=== PATIENT | female | born 1955 | race Caucasian/White ===

== ENCOUNTER 2024-11-23 14:59 | Inpatient (IN) | payer OTHER, MEDICARE ==
[2024-11-23] VITALS (12 sets, daily range): BP systolic 125–144; BP diastolic 63–95
[~2024-11-23] VITALS: Ht 157.5 cm; Wt 63.0 kg
[2024-11-23] MEDS ORDERED: METOPROLOL TART50 MG PO (15:12)
[2024-11-23] MEDS ORDERED: TRIAMTERENE-HC1 EAC2 PO (15:12)
[2024-11-23 15:27] LABS: BASOPHILS 0.1 % (0-2); HEMATOCRIT 43.2 % (35.0-50.0); HEMOGLOBIN 14.9 g/dL (12.0-18.0); LYMPHOCYTES 1.5 % (24-44); MCH 36.2 (27-36); MCHC 34.5 g/dl (30-36); MCV 104.9 fl (81-99); MONOCYTES 5.7 % (0-12); NEUTROPHILS 92.7 % (39-80); PLATELET COUNT 625 K/uL (140-440); RBC 4.12 M/ul (4.3-5.7); RDW 13.7 (10.5-15.0)
[2024-11-23] MEDS ORDERED: SODIUM CHLORIDE 0.9% 1,000 ML IV ONE (15:30)
[2024-11-23 15:41] LABS: ALBUMIN 2.5 g/dL (3.4-5.0); ALBUMIN/GLOBULIN RATIO 0.41 (1.1-2.4); ANION GAP 18.4 (7-21); BILIRUBIN, TOTAL 1.1 ng/dL (0.2-1.0); BUN/CREATININE RATIO 46.11 (6.0-28.6); CREATININE, SERUM 1.8 mg/dL (0.55-1.02); POTASSIUM 3.4 mmol/L (3.5-5.1); PROTEIN, TOTAL 8.6 g/dL (6.4-8.2)
[2024-11-23 15:50] LABS: CALCIUM 14.2 mg/dL (8.5-10.1)
[2024-11-23] MEDS ORDERED: LIDOCAINE 2% VISCOUS 6 ML SYR TOP ONE (16:00)
[2024-11-23 16:28] LABS: BILIRUBIN, URINE POSITIVE (negative); BLOOD/HGB, URINE TRACE-I (Negative); KETONE, URINE NEGATIVE (Negative); LEUK ESTERASE, URINE MODERATE (negative); NITRITE, URINE NEGATIVE (negative); PH, URINE 5.5 (5-7)
[2024-11-23 16:33] LABS: EPITHELIAL CELLS, URINE SQUAMOUS 3+ /lpf (0-1+)
[2024-11-23 16:34] LABS: CRYSTALS, URINE NONE SEEN (0-1+); WHITE BLOOD CELLS, URINE 41-50 /HPF (0-5)
[2024-11-23 16:35] LABS: BACTERIA, URINE 3+ /hpf (negative); CASTS, URINE NONE SEEN \\lpf; COLLECTION TYPE, URINE CLEAN CATCH; REFLEX CULTURE, URINE No (No)
[2024-11-23] MEDS ORDERED: CEFTRIAXONE/SODIUM CHLORIDE 2 GM/100 ML PIGGYBACK IV ONE (16:45)
[2024-11-23] MEDS ORDERED: LIDOCAINE HCL 4% 1 EACH PATCH TD SCH (17:30)
[2024-11-23] MEDS ORDERED: SODIUM CHLORIDE 0.9% 1,000 ML IV SCH (18:15)
[2024-11-23] MEDS ORDERED: ondansetron HCL 4 MG/2 ML VIAL IV PRN (18:15)
[2024-11-23] MEDS ORDERED: OXYCODONE HCL 5 MG TAB PO PRN (20:45)
[2024-11-23] MEDS ORDERED: LIDOCAINE PATCH REMOVAL 1 EA TD SCH (21:00)
[2024-11-23] MEDS ORDERED: HEParin SOD (PORCINE) 5,000 UNIT/ML SDV SUB-Q SCH (21:00)
[2024-11-23 21:28] LABS: ANION GAP 15.1 (7-21); BUN/CREATININE RATIO 62.01 (6.0-28.6); CALCIUM 11.7 mg/dL (8.5-10.1); CREATININE, SERUM 1.29 mg/dL (0.55-1.02); POTASSIUM 3.1 mmol/L (3.5-5.1)
[2024-11-23] MEDS ORDERED: POTASSIUM CHLORIDE 10 MEQ TABCR PO ONE (22:45)
[2024-11-24] VITALS (15 sets, daily range): BP systolic 104–143; BP diastolic 59–83
[2024-11-24] MEDS ORDERED: DEXTROSE 5% - NACL 0.45% 1,000 ML IV SCH (02:00)
[2024-11-24 02:31] LABS: ANION GAP 13.8 (7-21); BUN/CREATININE RATIO 60.62 (6.0-28.6); CALCIUM 11.3 mg/dL (8.5-10.1); CREATININE, SERUM 1.27 mg/dL (0.55-1.02); POTASSIUM 3.8 mmol/L (3.5-5.1)
[2024-11-24] MEDS ORDERED: DEXTROSE 50% 50 ML SYR IV ONE (03:00)
[2024-11-24] MEDS ORDERED: SODIUM CHLORIDE 0.9% 1,000 ML IV SCH ×2 (03:00→14:30)
[2024-11-24 06:23] LABS: BASOPHILS 0.1 % (0-2); EOSINOPHILS 0.1 % (0-6); HEMOGLOBIN 10.7 g/dL (12.0-18.0); LYMPHOCYTES 1.9 % (24-44); MCH 35.8 (27-36); MCHC 34.4 g/dl (30-36); MCV 104.2 fl (81-99); MONOCYTES 6.5 % (0-12); NEUTROPHILS 91.4 % (39-80); PLATELET COUNT 421 K/uL (140-440); RBC 2.97 M/ul (4.3-5.7); RDW 14.2 (10.5-15.0)
[2024-11-24 06:37] LABS: ALBUMIN 1.6 g/dL (3.4-5.0); ANION GAP 14.2 (7-21); BUN/CREATININE RATIO 58.77 (6.0-28.6); CREATININE, SERUM 1.14 mg/dL (0.55-1.02); PHOSPHORUS, INORGANIC 2.6 mg/dL (2.5-4.9); POTASSIUM 3.2 mmol/L (3.5-5.1)
[2024-11-24] MEDS ORDERED: POTASSIUM CHLORIDE 10 MEQ TABCR PO ONE (07:00)
[2024-11-24] MEDS ORDERED: DEXTROSE 5% 1,000 ML IV SCH (07:00)
[2024-11-24] MEDS ORDERED: MAGNESIUM SULFATE 2 GM/50 ML BAG IV SCH (07:00)
[2024-11-24] MEDS ORDERED: CALCITONIN SALMON 400 UNIT/2 ML SUB-Q SCH ×2 (09:00→10:00)
[2024-11-24] MEDS ORDERED: SENNOSIDES/DOCUSATE 1 EA TAB PO SCH (09:00)
[2024-11-24] MEDS ORDERED: ZOLEDRONIC AC/MANNITOL/0.9NACL 4 MG/100 ML BAG IV ONE (09:00)
[2024-11-24] MEDS ORDERED: POLYETHYLENE GLYCOL 3350 1 PACKET PO SCH (09:00)
[2024-11-24] MEDS ORDERED: CEFTRIAXONE/SODIUM CHLORIDE 1 GM/100 ML PIGGYBACK IV SCH (09:00)
[2024-11-24] MEDS ORDERED: PHARMACY RENAL DOSE ADJUSTMENT 1 DOSE MISC PO SCH (12:00)
[2024-11-24 13:50] LABS: ANION GAP 11.7 (7-21); BUN/CREATININE RATIO 53.57 (6.0-28.6); CALCIUM 11.1 mg/dL (8.5-10.1); CREATININE, SERUM 1.12 mg/dL (0.55-1.02); POTASSIUM 3.7 mmol/L (3.5-5.1)
[2024-11-24] MEDS ORDERED: THIAMINE HCL 100 MG TAB PO SCH (14:56)
[2024-11-24] MEDS ORDERED: FOLIC ACID 1 MG TAB PO SCH (15:00)
[2024-11-24] MEDS ORDERED: LORazepam 2 MG/ML VIAL IV/IM PRN (15:00)
--- NOTE | 2024-11-24 15:15 | EKG ---
[facility] [address] [facility] [place], [place] [address] Signed Normal sinus rhythm Right atrial enlargement Nonspecific T wave abnormality Abnormal ECG No previous ECGs available Confirmed by Sarah Carranaz MD ([id number]) on 11/24/2024 3:15:24 PM Electronically Signed By: SARAH CARRANZA MD 11/24/24 1515 PATIENT NAME: ISAIAH SUAREZ Electrocardiogram DATE OF : 51 PHYSICIAN: SARAH CARRANZA MD REPORT #: [id number] REPORT IS CONFIDENTIAL AND NOT TO BE RELEASED WITHOUT AUTHORIZATION
[2024-11-24 18:46] LABS: BUN/CREATININE RATIO 53.77 (6.0-28.6); CALCIUM 10.4 mg/dL (8.5-10.1); CREATININE, SERUM 1.06 mg/dL (0.55-1.02)
[2024-11-25] VITALS (16 sets, daily range): BP systolic 104–157; BP diastolic 58–99
[2024-11-25 05:16] LABS: HEMATOCRIT 32.2 % (35.0-50.0); HEMOGLOBIN 10.8 g/dL (12.0-18.0); MCH 35.6 (27-36); MCHC 33.6 g/dl (30-36); MCV 105.7 fl (81-99); PLATELET COUNT 346 K/uL (140-440); RBC 3.05 M/ul (4.3-5.7); RDW 14.3 (10.5-15.0)
[2024-11-25 05:27] LABS: ALBUMIN 1.5 g/dL (3.4-5.0); ANION GAP 11.7 (7-21); BANDS, MANUAL DIFF 1; BUN/CREATININE RATIO 56.38 (6.0-28.6); CALCIUM 9.9 mg/dL (8.5-10.1); CREATININE, SERUM 0.94 mg/dL (0.55-1.02); EOSINOPHILS, MANUAL DIFF 1; LYMPHOCYTES, MANUAL DIFF 3; MAGNESIUM 1.9 mg/dL (1.8-2.4); NEUTROPHILS, MANUAL DIFF 95; PHOSPHORUS, INORGANIC 2.3 mg/dL (2.5-4.9); POTASSIUM 3.7 mmol/L (3.5-5.1)
[2024-11-25] MEDS ORDERED: FUROSEMIDE 40 MG/4 ML VIAL IV ONE (08:00)
[2024-11-25] MEDS ORDERED: KETOROLAC TROMETHAMINE 15 MG/ML VIAL IV ONE (08:00)
[2024-11-25 08:49] LABS: PARATHYROID HORMONE,INTACT 11 pg/mL (15-65)
[2024-11-25] MEDS ORDERED: FOLIC ACID 1 MG/0.2 ML ML IV SCH (09:00)
[2024-11-25] MEDS ORDERED: METOPROLOL TARTRATE 5 MG/5 ML VIAL IV SCH (09:00)
[2024-11-25] MEDS ORDERED: POTASSIUM PHOSPHATE 30 MMOL in DEXTROSE 5% 500 ML IV ONE (09:00)
[2024-11-25] MEDS ORDERED: THIAMINE HCL 200 MG/2 ML VIAL IV SCH (09:00)
[2024-11-25] MEDS ORDERED: CALCITONIN SALMON 400 UNIT/2 ML SUB-Q SCH (09:30)
[2024-11-25 13:53] LABS: VITAMIN D 25 OH 10 ng/mL (30-80)
[2024-11-25] MEDS ORDERED: KETOROLAC TROMETHAMINE 15 MG/ML VIAL IV PRN (18:15)
[2024-11-25 18:49] LABS: ANION GAP 13.1 (7-21); BUN/CREATININE RATIO 47.11 (6.0-28.6); CALCIUM 9.1 mg/dL (8.5-10.1); CREATININE, SERUM 1.04 mg/dL (0.55-1.02); POTASSIUM 4.1 mmol/L (3.5-5.1)
[2024-11-25] MEDS ORDERED: SODIUM CHLORIDE 0.9% 1,000 ML IV SCH (20:00)
[2024-11-26] VITALS (16 sets, daily range): BP systolic 103–151; BP diastolic 59–92
[2024-11-26 05:22] LABS: HEMOGLOBIN 10.1 g/dL (12.0-18.0); RDW 14.3 (10.5-15.0)
[2024-11-26 05:24] LABS: HEMATOCRIT 30.4 % (35.0-50.0); MCH 34.9 (27-36); MCHC 33.1 g/dl (30-36); MCV 105.5 fl (81-99); PLATELET COUNT 322 K/uL (140-440); RBC 2.88 M/ul (4.3-5.7)
[2024-11-26 05:34] LABS: ALBUMIN 1.5 g/dL (3.4-5.0); BUN/CREATININE RATIO 51.4 (6.0-28.6); CALCIUM 8.6 mg/dL (8.5-10.1); CREATININE, SERUM 1.07 mg/dL (0.55-1.02); MAGNESIUM 1.6 mg/dL (1.8-2.4); PHOSPHORUS, INORGANIC 3.5 mg/dL (2.5-4.9)
[2024-11-26 05:40] LABS: BANDS, MANUAL DIFF 2; EOSINOPHILS, MANUAL DIFF 4; LYMPHOCYTES, MANUAL DIFF 3; MONOCYTES, MANUAL DIFF 3; NEUTROPHILS, MANUAL DIFF 88
[2024-11-26] MEDS ORDERED: MAGNESIUM SULFATE 2 GM/50 ML BAG IV SCH (07:30)
[2024-11-26] MEDS ORDERED: METOPROLOL TARTRATE 50 MG TAB PO SCH (09:00)
[2024-11-26] MEDS ORDERED: IBUPROFEN 400 MG TAB PO PRN (10:15)
[2024-11-27] VITALS (14 sets, daily range): BP systolic 105–153; BP diastolic 58–86
[2024-11-27 05:20] LABS: HEMOGLOBIN 9.7 g/dL (12.0-18.0); MCH 35.2 (27-36); MCHC 33.5 g/dl (30-36); MCV 105.2 fl (81-99); PLATELET COUNT 309 K/uL (140-440); RBC 2.75 M/ul (4.3-5.7); RDW 14.2 (10.5-15.0)
[2024-11-27 05:33] LABS: ALBUMIN 1.3 g/dL (3.4-5.0); ANION GAP 12.9 (7-21); BUN/CREATININE RATIO 48.21 (6.0-28.6); CALCIUM 7.5 mg/dL (8.5-10.1); CREATININE, SERUM 1.12 mg/dL (0.55-1.02); MAGNESIUM 2.3 mg/dL (1.8-2.4); PHOSPHORUS, INORGANIC 2.6 mg/dL (2.5-4.9); POTASSIUM 3.9 mmol/L (3.5-5.1)
[2024-11-27 05:37] LABS: BANDS, MANUAL DIFF 1; EOSINOPHILS, MANUAL DIFF 2; LYMPHOCYTES, MANUAL DIFF 8; MONOCYTES, MANUAL DIFF 4; NEUTROPHILS, MANUAL DIFF 85
[2024-11-27] MEDS ORDERED: bisacodyL 10 MG SUPP PR ONE (07:15)
[2024-11-27] MEDS ORDERED: MINERAL OIL 133 ML BTL PR ONE (07:15)
[2024-11-27] MEDS ORDERED: FOLIC ACID 1 MG TAB PO SCH (08:00)
[2024-11-27] MEDS ORDERED: THIAMINE HCL 100 MG TAB PO SCH (08:00)
[2024-11-27] MEDS ORDERED: CEFTRIAXONE/SODIUM CHLORIDE 2 GM/100 ML PIGGYBACK IV SCH (09:00)
[2024-11-27] MEDS ORDERED: POLYETHYLENE GLYCOL 3350 1 PACKET PO SCH (09:00)
[2024-11-27] MEDS ORDERED: SENNOSIDES/DOCUSATE 1 EA TAB PO SCH (09:00)
[2024-11-27] MEDS ORDERED: ALBUTEROL SULFATE 0.083% 3 ML VIAL INH PRN (11:00)
[2024-11-27] MEDS ORDERED: ALBUTEROL/IPRATROPIUM 3 ML NEB INH SCH (16:00)
[2024-11-27] MEDS ORDERED: FUROSEMIDE 40 MG/4 ML VIAL ONE (17:01)
[2024-11-27] MEDS ORDERED: FUROSEMIDE 40 MG/4 ML VIAL IV SCH (17:06)
[2024-11-27] MEDS ORDERED: metroNIDAZOLE/SODIUM CHLORIDE 500 MG/100 ML PIGGYBACK IV SCH (22:00)
[2024-11-27 22:47] LABS: INFLUENZA B NAA NEGATIVE (NEGATIVE); RESPIRATORY SYNCYTIAL VIR NAA NEGATIVE (NEGATIVE)
[2024-11-28] VITALS (21 sets, daily range): BP systolic 119–169; BP diastolic 69–96
[2024-11-28] MEDS ORDERED: METOPROLOL TARTRATE 5 MG/5 ML VIAL IV SCH (02:00)
[2024-11-28 05:20] LABS: HEMOGLOBIN 10.5 g/dL (12.0-18.0); MCHC 32.9 g/dl (30-36); MCV 106.2 fl (81-99); PLATELET COUNT 277 K/uL (140-440); RBC 3.01 M/ul (4.3-5.7); RDW 14.6 (10.5-15.0)
[2024-11-28 05:32] LABS: ALBUMIN 1.5 g/dL (3.4-5.0); ANION GAP 16.1 (7-21); BUN/CREATININE RATIO 41.6 (6.0-28.6); CALCIUM 7.1 mg/dL (8.5-10.1); CREATININE, SERUM 1.37 mg/dL (0.55-1.02); MAGNESIUM 2.1 mg/dL (1.8-2.4); PHOSPHORUS, INORGANIC 3.7 mg/dL (2.5-4.9); POTASSIUM 4.1 mmol/L (3.5-5.1)
[2024-11-28 05:38] LABS: BANDS, MANUAL DIFF 2; LYMPHOCYTES, MANUAL DIFF 6; MONOCYTES, MANUAL DIFF 9; NEUTROPHILS, MANUAL DIFF 83
[2024-11-28] MEDS ORDERED: FOLIC ACID 1 MG TAB PO SCH (14:15)
[2024-11-28] MEDS ORDERED: THIAMINE HCL 100 MG TAB PO SCH (14:15)
[2024-11-28] MEDS ORDERED: TRAMADOL HCL 50 MG TAB PO PRN (17:45)
[2024-11-28] MEDS ORDERED: ALBUTEROL/IPRATROPIUM 3 ML NEB INH SCH (20:00)
[2024-11-28] MEDS ORDERED: OXYCODONE HCL 5 MG TAB PO PRN (22:00)
[2024-11-29] VITALS (9 sets, daily range): BP systolic 126–153; BP diastolic 70–94
[2024-11-29 05:42] LABS: BASOPHILS 0.2 % (0-2); EOSINOPHILS 1.9 % (0-6); LYMPHOCYTES 4.3 % (24-44); MCH 35.1 (27-36); MCHC 33.4 g/dl (30-36); MCV 104.9 fl (81-99); MONOCYTES 5.4 % (0-12); NEUTROPHILS 88.2 % (39-80); PLATELET COUNT 244 K/uL (140-440); RBC 2.86 M/ul (4.3-5.7); RDW 14.9 (10.5-15.0)
[2024-11-29 06:06] LABS: ALBUMIN 1.4 g/dL (3.4-5.0); ALBUMIN/GLOBULIN RATIO 0.35 (1.1-2.4); ANION GAP 13.6 (7-21); BILIRUBIN, TOTAL 0.3 ng/dL (0.2-1.0); BUN/CREATININE RATIO 36.53 (6.0-28.6); CALCIUM 6.6 mg/dL (8.5-10.1); CREATININE, SERUM 1.56 mg/dL (0.55-1.02); POTASSIUM 3.6 mmol/L (3.5-5.1); PROTEIN, TOTAL 5.4 g/dL (6.4-8.2)
[2024-11-29 06:18] LABS: CHOLESTEROL/HDL RATIO 2.1
[2024-11-29] MEDS ORDERED: VANCOMYCIN PER PHARMACY PROTOCOL IV SCH (09:24)
[2024-11-29] MEDS ORDERED: METOPROLOL TARTRATE 50 MG TAB PO SCH (10:07)
[2024-11-29] MEDS ORDERED: SODIUM CHLORIDE 0.9% 1,000 ML IV SCH (10:15)
[2024-11-29] MEDS ORDERED: VANCOMYCIN HCL 1,500 MG in DEXTROSE 5% 250 ML IV ONE (11:00)
[2024-11-29 17:06] LABS: HEMATOCRIT 31.8 % (35.0-50.0); HEMOGLOBIN 10.7 g/dL (12.0-18.0); MCH 35.3 (27-36); MCHC 33.5 g/dl (30-36); MCV 105.3 fl (81-99); PLATELET COUNT 257 K/uL (140-440); RBC 3.02 M/ul (4.3-5.7)
[2024-11-29 17:15] LABS: ANION GAP 14.6 (7-21); BUN/CREATININE RATIO 34.3 (6.0-28.6); CALCIUM 6.5 mg/dL (8.5-10.1); CREATININE, SERUM 1.72 mg/dL (0.55-1.02); POTASSIUM 3.6 mmol/L (3.5-5.1)
[2024-11-29 17:23] LABS: EOSINOPHILS, MANUAL DIFF 1; LYMPHOCYTES, MANUAL DIFF 2; MONOCYTES, MANUAL DIFF 3; NEUTROPHILS, MANUAL DIFF 94
[2024-11-29] MEDS ORDERED: SODIUM CHLORIDE 0.9% 500 ML IV SCH ×2 (18:00→20:30)
[2024-11-30] VITALS (9 sets, daily range): BP systolic 114–145; BP diastolic 67–75
[2024-11-30 05:29] LABS: BASOPHILS 0.3 % (0-2); EOSINOPHILS 1.9 % (0-6); HEMATOCRIT 29.1 % (35.0-50.0); HEMOGLOBIN 9.7 g/dL (12.0-18.0); LYMPHOCYTES 4.1 % (24-44); MCHC 33.5 g/dl (30-36); MCV 104.4 fl (81-99); MONOCYTES 4.4 % (0-12); NEUTROPHILS 89.3 % (39-80); PLATELET COUNT 231 K/uL (140-440); RBC 2.78 M/ul (4.3-5.7); RDW 15.2 (10.5-15.0)
[2024-11-30 05:48] LABS: ALBUMIN 1.2 g/dL (3.4-5.0); ALBUMIN/GLOBULIN RATIO 0.32 (1.1-2.4); ANION GAP 14.8 (7-21); BILIRUBIN, TOTAL 0.2 ng/dL (0.2-1.0); BUN/CREATININE RATIO 33.74 (6.0-28.6); CREATININE, SERUM 1.63 mg/dL (0.55-1.02); MAGNESIUM 1.6 mg/dL (1.8-2.4); PHOSPHORUS, INORGANIC 3.6 mg/dL (2.5-4.9); POTASSIUM 3.8 mmol/L (3.5-5.1)
[2024-11-30 06:01] LABS: CALCIUM 6.1 mg/dL (8.5-10.1)
[2024-11-30] MEDS ORDERED: hydrOXYzine pamoate 25 MG CAP PO PRN (07:45)
[2024-11-30] MEDS ORDERED: CALCIUM CARBONATE 500 MG CHEW PO ONE (09:30)
[2024-11-30] MEDS ORDERED: VANCOMYCIN HCL 750 MG in DEXTROSE 5% 250 ML IV SCH (11:00)
[2024-11-30] MEDS ORDERED: ALBUTEROL/IPRATROPIUM 3 ML NEB INH SCH (12:00)
[2024-11-30] MEDS ORDERED: MORPHINE SULFATE 4 MG/ML VIAL IV PRN (16:30)
[2024-11-30] MEDS ORDERED: MAGNESIUM SULFATE 2 GM/50 ML BAG IV SCH (16:45)
[2024-12-01] VITALS (9 sets, daily range): BP systolic 99–137; BP diastolic 55–83
[2024-12-01 05:40] LABS: BASOPHILS 0.3 % (0-2); EOSINOPHILS 2.3 % (0-6); HEMOGLOBIN 10.4 g/dL (12.0-18.0); LYMPHOCYTES 3.2 % (24-44); MCH 34.6 (27-36); MCHC 32.6 g/dl (30-36); MCV 106.2 fl (81-99); MONOCYTES 5.7 % (0-12); NEUTROPHILS 88.5 % (39-80); PLATELET COUNT 212 K/uL (140-440); RBC 3.01 M/ul (4.3-5.7); RDW 15.4 (10.5-15.0)
[2024-12-01 06:00] LABS: ALBUMIN 1.3 g/dL (3.4-5.0); ALBUMIN/GLOBULIN RATIO 0.34 (1.1-2.4); BILIRUBIN, TOTAL 0.2 ng/dL (0.2-1.0); BUN/CREATININE RATIO 32.14 (6.0-28.6); CREATININE, SERUM 1.68 mg/dL (0.55-1.02); MAGNESIUM 2.7 mg/dL (1.8-2.4); PROTEIN, TOTAL 5.1 g/dL (6.4-8.2)
[2024-12-01 06:01] LABS: CALCIUM 6.4 mg/dL (8.5-10.1)
[2024-12-01] MEDS ORDERED: CALCIUM CARBONATE 500 MG CHEW PO ONE (07:45)
[2024-12-01] MEDS ORDERED: ALBUTEROL/IPRATROPIUM 3 ML NEB INH SCH (08:00)
[2024-12-01 18:27] LABS: WBC, BODY FLUID 1000
[2024-12-01 18:28] LABS: CRYSTALS, BODY FLUID NOT SEEN; MONONUCLEAR CELLS, BODY FLUID 4; PMNS, BODY FLUID 96; RBC, BODY FLUID 267333; SOURCE, BODY FLUID JOINT
[2024-12-02] VITALS (7 sets, daily range): BP systolic 120–140; BP diastolic 61–73
[2024-12-02 06:25] LABS: BASOPHILS 0.6 % (0-2); EOSINOPHILS 2.7 % (0-6); HEMATOCRIT 30.3 % (35.0-50.0); HEMOGLOBIN 9.9 g/dL (12.0-18.0); LYMPHOCYTES 2.8 % (24-44); MCH 34.2 (27-36); MCHC 32.8 g/dl (30-36); MCV 104.3 fl (81-99); MONOCYTES 4.7 % (0-12); NEUTROPHILS 89.2 % (39-80); PLATELET COUNT 185 K/uL (140-440); RDW 15.4 (10.5-15.0)
[2024-12-02 06:38] LABS: ALBUMIN 1.4 g/dL (3.4-5.0); ALBUMIN/GLOBULIN RATIO 0.36 (1.1-2.4); ANION GAP 14.8 (7-21); BILIRUBIN, TOTAL 0.3 ng/dL (0.2-1.0); BUN/CREATININE RATIO 33.92 (6.0-28.6); CALCIUM 6.9 mg/dL (8.5-10.1); CREATININE, SERUM 1.68 mg/dL (0.55-1.02); MAGNESIUM 2.4 mg/dL (1.8-2.4); PHOSPHORUS, INORGANIC 4.2 mg/dL (2.5-4.9); POTASSIUM 3.8 mmol/L (3.5-5.1); PROTEIN, TOTAL 5.3 g/dL (6.4-8.2)
[2024-12-02 10:50] LABS: VANCOMYCIN, TROUGH 21.2 ug/mL (5.0-20.0)
[2024-12-02] MEDS ORDERED: MIRTAZAPINE 15 MG TAB PO SCH (21:00)
[2024-12-02] MEDS ORDERED: clindamycin HCL 300 MG CAP PO SCH (21:00)
[2024-12-03 00:34] VITALS: BP 122/71
[2024-12-03 03:58] LABS: HEMOGLOBIN 10.2 g/dL (12.0-18.0)
[2024-12-03 04:00] LABS: MCH 34.7 (27-36); MCHC 32.9 g/dl (30-36); MCV 105.3 fl (81-99); PLATELET COUNT 116 K/uL (140-440); RBC 2.94 M/ul (4.3-5.7); RDW 15.6 (10.5-15.0)
[2024-12-03 04:12] LABS: BASOPHILS, MANUAL DIFF 1; EOSINOPHILS, MANUAL DIFF 1; LYMPHOCYTES, MANUAL DIFF 9; MONOCYTES, MANUAL DIFF 5; NEUTROPHILS, MANUAL DIFF 84
[2024-12-03 04:19] LABS: ALBUMIN 1.5 g/dL (3.4-5.0); ALBUMIN/GLOBULIN RATIO 0.38 (1.1-2.4); ANION GAP 12.3 (7-21); BILIRUBIN, TOTAL 0.2 ng/dL (0.2-1.0); BUN/CREATININE RATIO 31.07 (6.0-28.6); CALCIUM 7.4 mg/dL (8.5-10.1); CREATININE, SERUM 1.77 mg/dL (0.55-1.02); MAGNESIUM 2.5 mg/dL (1.8-2.4); PHOSPHORUS, INORGANIC 5.5 mg/dL (2.5-4.9); POTASSIUM 4.3 mmol/L (3.5-5.1); PROTEIN, TOTAL 5.5 g/dL (6.4-8.2)
[2024-12-03] MEDS ORDERED: FUROSEMIDE 40 MG/4 ML VIAL IV SCH (05:30)
[2024-12-03 05:36] VITALS: BP 94/62
[2024-12-03 06:30] VITALS: BP 105/55
[2024-12-03 07:48] LABS: INR 1.03 (0.80-1.30); PROTIME 13.4 Sec (11.2-14.2)
[2024-12-03 07:51] LABS: PARTIAL THROMBOPLASTIN TIME 32.6 Sec (22.9-41.3)
[2024-12-03] MEDS ORDERED: ALBUTEROL/IPRATROPIUM 3 ML NEB INH SCH (08:00)
[2024-12-03] MEDS ORDERED: DIATRIZOATE MEGLU/DIATRIZO SOD 15 ML BTL PO ONE (09:00)
[2024-12-03] MEDS ORDERED: DAPTOmycin 500 MG/10 ML VIAL IV SCH (09:00)
[2024-12-03] MEDS ORDERED: LACTATED RINGER'S 1,000 ML IV ONE (09:45)
[2024-12-03 10:26] VITALS: BP 101/56
[2024-12-03] MEDS ORDERED: ALBUMIN HUMAN 25% 100 ML BTL IV ONE (11:45)
[2024-12-03] MEDS ORDERED: KETOROLAC TROMETHAMINE 15 MG/ML VIAL IV PRN (13:15)
[2024-12-03] MEDS ORDERED: MORPHINE SULFATE 4 MG/ML VIAL IV PRN (13:15)
[2024-12-03] MEDS ORDERED: LORazepam 2 MG/ML VIAL IV PRN (13:15)
[2024-12-03] MEDS ORDERED: METOCLOPRAMIDE HCL 10 MG/2 ML SDV IV PRN (13:15)
[2024-12-03] MEDS ORDERED: HALOPERIDOL LACTATE 5 MG/ML VIAL IV PRN (13:15)
[2024-12-03] MEDS ORDERED: ondansetron HCL 4 MG/2 ML VIAL IV PRN (13:15)
[2024-12-03] MEDS ORDERED: ATROPINE SULFATE 1% OPTH DROPS SL PRN (13:15)
[2024-12-03] MEDS ORDERED: PROCHLORPERAZINE 25 MG SUPP PR PRN (13:15)
[2024-12-03] MEDS ORDERED: ARTIFICIAL TEARS 15 ML BTL OU PRN (13:15)
[2024-12-03] MEDS ORDERED: bisacodyL 10 MG SUPP PR SCH (21:00)
[2024-12-04 19:19] LABS: VITAMIN D,1,25-DIHYDROXY 27.3 pg/mL (19.9-79.3)
[2024-12-06] MEDS ORDERED: SCOPOLAMINE 1 MG/3 DAYS PATCH 1 EACH TDSY TD SCH (09:00)
== END 2024-12-03 19:15 | DRG 682 ==
LOC: ED 14:59 → CCU 17:41
PROVIDERS: Emergency Medicine; Family Medicine; Student in an Organized Health Care Education/Training Program; ADMIT Student in an Organized Health Care Education/Training Program; ATTEND Student in an Organized Health Care Education/Training Program
PROC: 3E03329 Introduction of Other Anti-infective into Peripheral Vein, Percutaneous Approach (ICD-10-PCS; 2024-11-23)
PROC: 5A09357 Assistance with Respiratory Ventilation, Less than 24 Consecutive Hours, Continuous Positive Airway Pressure (ICD-10-PCS; 2024-11-23)
PROC: 0S9B3ZZ Drainage of Left Hip Joint, Percutaneous Approach (ICD-10-PCS; principal; 2024-12-01)
DX: N17.9 Acute kidney failure, unspecified (principal); G06.0 Intracranial abscess and granuloma; I26.99 Other pulmonary embolism without acute cor pulmonale; I33.0 Acute and subacute infective endocarditis; I63.9 Cerebral infarction, unspecified; J15.211 Pneumonia due to Methicillin susceptible Staphylococcus aureus; S22.42XA Multiple fractures of ribs, left side, initial encounter for closed fracture; G93.40 Encephalopathy, unspecified; S32.2XXA Fracture of coccyx, initial encounter for closed fracture; N39.0 Urinary tract infection, site not specified; M25.052 Hemarthrosis, left hip; E87.1 Hypo-osmolality and hyponatremia; F10.239 Alcohol dependence with withdrawal, unspecified; E83.52 Hypercalcemia; E87.6 Hypokalemia; E86.0 Dehydration; Z66 Do not resuscitate; Z51.5 Encounter for palliative care; B95.61 Methicillin susceptible Staphylococcus aureus infection as the cause of diseases classified elsewhere; I10 Essential (primary) hypertension; E83.39 Other disorders of phosphorus metabolism; E16.2 Hypoglycemia, unspecified; E83.42 Hypomagnesemia; V89.2XXA Person injured in unspecified motor-vehicle accident, traffic, initial encounter; Z90.49 Acquired absence of other specified parts of digestive tract; F41.9 Anxiety disorder, unspecified
CPT/HCPCS: 20610; 36415; 51702; 70450; 70488; 70551; 71045; 71250; 72170; 73700; 74177; 74230; 80048; 80053; 80061; 80202; 81001; 82040; 82140; 82306; 82553; 82652; 83036; 83605; 83735; 83880; 83970; 84100; 85025; 85060; 85379; 85384; 85610; 85730; 87040; 87077; 87088; 87186; 87205; 87502; 89051; 89060; 92526; 92611; 93005; 93010; 93306; 93880; 94640; 94660; 94667; 94668; 94799; 97110; 97163; 97167; 97530; 97535; 99285-25; A9270; G0480; J0630; J0696; J1644; J1885; J1940; J2060; J2270; J3370; J3411; J3475; J3489; J7030; J7042; J7060; J7070; J7121; P9047; Q0177; Q9967; U0002